=== PATIENT | female | born 1930 | race Caucasian/White ===

== ENCOUNTER 2017-07-10 09:45 | Emergency (ER) | payer MEDICARE, MEDICAID ==
--- NOTE | 2017-07-10 10:06 | ED Physician Chart ---
ED Chief Complaint/HPI - Patient Information Date Seen:: 07/10/17 Time Seen:: 09:45 Chief Complaint:: Syncope History of Present Illness:: onset x 3 days of syncope with frequent falls; no report of H/As, S/T, neck pain , C/P, SOB, Abd. Pain, A/N/V/D/C, fever, chills, or urinary s/s Historian:: Patient, Family Member Review:: Nurse's Note Reviewed ED Review of Systems - Review of Systems General/Constitutional: No fever, No chills, No weight loss, No weakness, No diaphoresis, No edema, No loss of appetite Skin: No skin lesions, No rash, No bruising Head: No headache, No light-headedness Eyes: No loss of vision, No pain, No diplopia ENT: No earache, No nasal drainage, No sore throat, No tinnitus Neck: No neck pain, No swelling, No thyromegaly, No stiffness, No mass noted Cardio Vascular: No chest pain, No palpitations, No PND, No orthopnea, No edema Pulmonary: No SOB, No cough, No sputum, No wheezing GI: No nausea, No vomiting, No diarrhea, No pain, No melena, No hematochezia, No constipation, No hematemesis G/U: No dysuria, No frequency, No hematuria, No nacturia Commercial Loan Analyst: No vaginal discharge, No abnormal vaginal bleed, No contraction Musculoskeletal: No bone or joint pain, No back pain, No muscle pain Endocrine: No polyuria, No polydipsia Psychiatric: No prior psych history, No depression, No anxiety, No suicidal ideation, No homicidal ideation, No auditory hallucination, No visual hallucination Hematopoietic: No bruising, No lymphadenopathy Allergic/Immuno: No urticaria, No angioedema Neurological: Syncope, No focal symptoms, No weakness, No paresthesia, No headache, No seizure, Dizziness, Confusion, Vertigo ED Past Medical History - Past Medical History Obtainable: Yes Past Medical History: HTN, Dementia Family History: Diabetes Melitus, HTN Social History: Non Smoker, No Alcohol, No Drug Use, Surgical History: other (Left Hip ORIF Surgery) Psychiatricy History: Dementia Medication: Reviewed ED Physical Exam - Physical Examination General/Constitutional: Awake, Well-developed, well-nourished, Alert, No distress, GCS 15, Non-toxic appearing, Ambulatory Head: Atraumatic Eyes: Lids, conjuctiva normal, PERRL, EOMI Skin: Nl inspection, No rash, No skin lesions, No ecchymosis, Well hydrated, No lymphadenopathy ENMT: External ears, nose nl, TM canals nl, Nasal exam nl, Lips, teeth, gums nl , Oropharynx nl, Tonsils nl Neck: Nontender, Full ROM w/o pain, No JVD, No nuchal rigidity, No bruit, No mass, No stridor Respiratory: Nl effort/Exclusion, Clear to Auscultation, No Wheeze/Rhonchi/Rales Cardio Vascular: RRR, No murmur, gallop, rubs, NL S1 S2, Carotid/Femoral/Distal pulses equal bilaterally GI: No tenderness/rebounding/guarding, No organomegaly, No hernia, Normal BS's, Nondistended, No mass/bruits, No McBurney tenderness : No CVA tenderness Extremities: No tenderness or effusion, Full ROM, normal strength in all extremities, No edema, Normal digits & nails Neuro/Psych: DTR's symmetric, Normal sensory exam, Normal motor strength, Judgement/insight normal, Mood normal, Normal gait, No focal deficits Other Neuro/Psych comments:: Disoriented and Confused Misc: Normal back, No paraspinal tenderness ED Labs/Radiology/EKG Results - Lab Results Comments:: unremarkable - Radiology Results Comments:: CXR: COPD; NAD - EKG Interpretations EKG Time:: 10:08 Rate & Rhythm: 51; SB Comments:: non-specific st-t changes ED Septic Shock - . Is Septic Shock (SBP<90, OR Lactate>4 mmol\L) present?: No ED Reassessment (Disposition) - Reassessment Reassessment:: pt chose to sign out AMA; pt is asymptomatic upon discharge Reassessment Condition:: Improved - Diagnosis Diagnosis:: S/P Falls; Syncope; Hip Injuries; Dementia - Aftercare/Follow up Instructions Aftercare/Follow-Up Instructions:: Counseled pt regarding lab results/diagnosis & need follow up, Refer to Discharge Instructions, Counseled pt & family regarding lab results/diagnosis & need follow up - Patient Disposition Discharge/Transfer:: Against Medical Advice Condition at Disposition:: Stable, Improved (RTER prn if existing s/s reoccur and/or get worse and/or any other new s/s occur; X-rays Instructions; ACIs given for all above Dx; Refer to Orthopedist/Neurologist/Sales Order Coordinator/Floor Sweeper NELSON; F/U with PMD today or prn; RTER prn if concerned)
[2017-07-10 10:38] LABS: INR 1.03 (0.5-1.4); PROTHROMBIN TIME (TEST) 10.7 SECONDS (9.5-11.5)
[2017-07-10 10:47] LABS: ALB/GLOB RATIO 1.2 (1.0-1.8); ALBUMIN 3.2 gm/dL (3.7-5.3); ALKALINE PHOSPHATASE 98 U/L (34-104); ANION GAP 8.2 (7.0-16.0); BILIRUBIN,TOTAL 0.6 mg/dL (0.3-1.0); BUN - UREA NITROGEN 25 mg/dL (7-25); CALCIUM SERUM 9.2 mg/dL (8.6-10.3); CARBON DIOXIDE 30.8 mEq/L (21.0-31.0); CHLORIDE 106 mEq/L (98-107); CHOLESTEROL 141 mg/dL (<200); CREATININE - SERUM 0.8 mg/dL (0.6-1.2); CREATININE KINASE 18 U/L (30-223); GLUCOSE 86 mg/dL (70-105); HDL -HIGH DENSITY LIPOPROTEIN 45 mg/dL (23-92); SGOT 15 U/L (13-39); SGPT/ALT 10 U/L (7-52); SODIUM SERUM 141 mEq/L (136-145); TOTAL PROTEIN,SERUM 5.8 gm/dL (6.0-8.3); TRIGLYCERIDES 66 mg/dL (<150)
[2017-07-10 11:10] LABS: % LYMPHOCYTES 18.5 % (20.0-50.0); % MONOCYTES 6.7 % (2.0-10.0); % NEUTROPHILS 70.5 % (40.0-80.0); HEMATOCRIT 38.9 % (41.0-60); MEAN CELL VOLUME 91.8 fl (81-100); MEAN CORPUSCULAR HEMOGLOBIN 30.7 pg (27.0-31.0); MEAN CORPUSCULAR HGB CONC 33.5 pg (28.0-36.0); MEAN PLATELET VOLUME 8.4 fl; PLATELET COUNT 167 Th/cmm (150-400); RED BLOOD COUNT 4.24 Mil/cmm (3.80-5.20); RED CELL DISTRIBUTION WIDTH 12.9 % (11.5-20.0); WHITE BLOOD COUNT 5.1 Th/cmm (4.8-10.8)
[2017-07-10 11:11] LABS: % BASOPHILS 0.5 % (0.0-2.0); % EOSINOPHILS 3.8 % (0.0-5.0); EOSINOPHILE ABSOLUTE 0.2 Th/cmm (0.1-0.4); LYMPHOCYTE ABSOLUTE 0.9 Th/cmm (1.5-3.0); MONOCYTE ABSOLUTE 0.3 Th/cmm (0.3-1.0); NEUTROPHILE ABSOLUTE 3.7 Th/cmm (1.8-8.0)
--- NOTE | 2017-07-10 11:58 | Diagnostic Imaging Report ---
CT scan of the brain without intravenous contrast HISTORY: Syncope Total DLP equals 620 CTDI equals 36.7 Axial sections were obtained from the base of the skull to the vertex. There is marked enlargement of the ventricular system size. Associated enlargement of cerebral sulci and subarachnoid cisterns. Findings are consistent with changes of generalized cerebral atrophy. No acute parenchymal abnormalities. No acute cerebral hemorrhage. Extensive hypodensity is seen within the supratentorial white matter regions without mass effect. The findings may be associated with chronic small vessel ischemic disease. There is a prominent cisterna magna. No extra-axial masses or abnormal fluid collections. IMPRESSION: 1. No acute abnormalities 2. Cerebral atrophy 3. Extensive supratentorial white matter changes that may reflect chronic small vessel ischemic disease
--- NOTE | 2017-07-10 11:59 | Diagnostic Imaging Report ---
Left hip (2 views) HISTORY: Pain, trauma Generalized osteoporosis. The joint space appears normal. The femoral head exhibits a normal contour. No definite acute bony abnormalities. No definite fractures. Hypertrophic degenerative changes noted along the lateral aspect of the acetabulum. IMPRESSION: 1. No acute abnormalities 2. Degenerative changes In the presence of recent trauma and persistent symptoms, a repeat radiograph in 5-7 days may be helpful for detection of a subtle or occult fracture.
--- NOTE | 2017-07-10 12:00 | Diagnostic Imaging Report ---
Pelvis (single view) HISTORY: Pain, trauma Surgical changes noted about the right hip. No acute bony abnormalities. No fractures. Degenerative changes noted in the visualized lower lumbar spine. Atherosclerotic vascular calcification noted. IMPRESSION: 1. No acute bony abnormalities 2. Surgical changes about the right hip 3. Degenerative changes within the lower lumbar spine 4. Atherosclerotic vascular changes
--- NOTE | 2017-07-10 12:05 | Diagnostic Imaging Report ---
Portable chest x-ray HISTORY: Pain The heart appears somewhat enlarged. No focal prominent processes. There is slight blunting of the right costophrenic angle that may be related to pleural thickening. A minimal effusion cannot be excluded. No acute focal pulmonary parenchymal processes. No hilar or mediastinal abnormalities. IMPRESSION: 1. No acute focal pulmonary parenchymal processes 2. Mild blunting of the right costophrenic angle. The findings may be related to pleural thickening. A minimal pleural effusion cannot be excluded 3. A generous heart size
== END 2017-07-10 13:00 | disposition left against medical advice (07) ==
LOC: ER 09:45
DX: R55 Syncope and collapse (principal); F03.90 Unspecified dementia, unspecified severity, without behavioral disturbance, psychotic disturbance, mood disturbance, and anxiety; I10 Essential (primary) hypertension; S79.919A Unspecified injury of unspecified hip, initial encounter; W19.XXXA Unspecified fall, initial encounter; Y93.89 Activity, other specified; Y92.89 Other specified places as the place of occurrence of the external cause; Y99.8 Other external cause status
CPT/HCPCS: 36415-UA; 70450-TC; 71045-TC; 72170-TC; 73501; 80053-TC; 80061-TC; 82550-TC; 83880-TC; 84484-TC; 85025-TC; 85610-TC; 93005; 94760